=== PATIENT | female | born 1950 | race Caucasian/White ===

== ENCOUNTER → 2020-08-14 | Outpatient (CLI) | payer MEDICARE ==
[~2020-08-14] MED LIST: ALEN70TA6 PO; ATOR40TA78 PO; BUPR1PAT7 TD; CHOL10003 PO; LEVO75TA5 PO; LISI-167 PO; NAPR-685 PO; OXYC10TA6 PO; PREG75CA PO; ZOLP10TA PO
[2020-08-14 15:38] LABS: BASOPHILS # (AUTO) 0.03 x10^3/uL (0-0.1); BASOPHILS % (AUTO) 0 % (0-1); EOSINOPHILS % (AUTO) 1 % (1-7); LYMPHOCYTES # (AUTO) 2.75 x10^3/uL (1-3.4); LYMPHOCYTES % (AUTO) 28 % (22-44); MD NO; MEAN CORPUSCULAR HEMOGLOBIN 30.9 pg (27.0-34.8); MEAN CORPUSCULAR HGB CONC 32.4 g/dL (32.4-35.8); MEAN CORPUSCULAR VOLUME 95.3 fL (80-100); MEAN PLATELET VOLUME 8.2 fL (7.4-10.4); MONOCYTES # (AUTO) 0.86 x10^3/uL (0.2-0.8); MONOCYTES % (AUTO) 9 % (2-9); NEUTROPHILS # (AUTO) 6.27 x10^3/uL (1.8-6.8); NEUTROPHILS % (AUTO) 63 % (42-75); PLATELET COUNT 265 x10^3/uL (130-400); RED BLOOD COUNT 5.34 x10^6/uL (3.82-5.3); RED CELL DISTRIBUTION WIDTH 14.5 % (9.6-15.2)
[2020-08-14 15:48] LABS: INTERNATIONAL NORMALIZED RATIO 1.02 (0.93-1.1); PROTHROMBIN TIME 10.5 Seconds (9.6-11.5)
[2020-08-14 15:50] LABS: ALBUMIN 3.9 g/dL (3.4-5.0); ANION GAP 5 mmol/L (5-15); CALCIUM 9.3 mg/dL (8.5-10.1); CHLORIDE 107 mmol/L (98-107)
[2020-08-14 15:55] LABS: ALANINE AMINOTRANSFERASE 31 U/L (12-78); ALKALINE PHOSPHATASE 83 U/L (45-117); BILIRUBIN,TOTAL 0.7 mg/dL (0.2-1.0); CREATININE 0.97 mg/dL (0.55-1.02); TOTAL PROTEIN 7.5 g/dL (6.4-8.2)
[2020-08-14 16:16] LABS: MICROSCOPIC AUTO
== END | disposition home or self-care (01) ==
LOC: STAR 14:28
PROVIDERS: ATTEND Neurological Surgery
DX: Z01.810 Encounter for preprocedural cardiovascular examination (principal); Z01.811 Encounter for preprocedural respiratory examination; Z01.812 Encounter for preprocedural laboratory examination; R79.1 Abnormal coagulation profile; M48.061 Spinal stenosis, lumbar region without neurogenic claudication; M43.06 Spondylolysis, lumbar region; R94.31 Abnormal electrocardiogram [ECG] [EKG]; R82.90 Unspecified abnormal findings in urine; M41.86 Other forms of scoliosis, lumbar region; M47.816 Spondylosis without myelopathy or radiculopathy, lumbar region; J43.9 Emphysema, unspecified
CPT/HCPCS: 36415; 71046; 72110; 80053; 81001; 85025; 85610; 85730; 87077; 87086; 93005

== ENCOUNTER → 2020-08-16 | Outpatient (CLI) | payer MEDICARE | END | disposition home or self-care (01) | LOC: STAR 14:00 | PROVIDERS: ATTEND Anesthesiology | DX: Z01.812 Encounter for preprocedural laboratory examination (principal); Z20.828 Contact with and (suspected) exposure to other viral communicable diseases | CPT/HCPCS: 36415; 87635 ==

== ENCOUNTER → 2021-04-02 | Outpatient (CLI) | payer MEDICARE ==
[~2021-04-02] MED LIST changes: -ALEN70TA6 PO; +ALEN70TA77 PO
== END | disposition home or self-care (01) ==
LOC: CVU 13:30
PROVIDERS: ATTEND Internal Medicine Cardiovascular Disease
DX: I83.91 Asymptomatic varicose veins of right lower extremity (principal); R60.9 Edema, unspecified
CPT/HCPCS: 93970

== ENCOUNTER → 2021-07-01 | Outpatient (CLI) | payer MEDICARE | END | disposition home or self-care (01) | LOC: CFH 13:49 | PROVIDERS: ATTEND Internal Medicine | DX: J43.9 Emphysema, unspecified (principal); R91.8 Other nonspecific abnormal finding of lung field; I77.810 Thoracic aortic ectasia; J98.4 Other disorders of lung | CPT/HCPCS: 71250 ==